=== PATIENT | male | born 1955 | race Caucasian/White ===

== ENCOUNTER 2018-10-12 04:53 | Observation (INO) | payer MEDICAID ==
[~2018-10-12] VITALS: Ht 185.4 cm; Wt 109.1 kg
--- NOTE | ~2018-10-12 | OP ---
PATIENT NAME: MY DOUGLAS MEDICAL RECORD: [id number] :53 LOCATION:D.[facility] [id number] ADMISSION DATE:10/12/18 SURGEON: QUAN RODRIGUEZ MD DATE OF OPERATION: 10/12/2018 PREOPERATIVE DIAGNOSIS: Symptomatic gallstones. POSTOPERATIVE DIAGNOSES: Symptomatic gallstones with extensive intraabdominal adhesions due to a previous bout of peritonitis from a perforated duodenal ulcer, hepatomegaly. PROCEDURES: 1. Laparoscopic cholecystectomy. 2. Intraoperative cholangiography without immediate surgeon interpretation. 3. A 18-gauge core needle liver biopsy. SURGEON: Quan Rodriguez MD ELECTRIC RELAY TESTER: None. BLOOD LOSS: 75 cc. ANESTHESIA: General. COMPLICATIONS: None. DRAINS: Indicator drain, which was a 10-[place]er closed suction drainage system, was placed intraabdominally. The risks, possible complications and alternatives to the procedure were explained to the patient. He elects to proceed. OPERATIVE COURSE: A consent form was signed. The patient was conveyed to the operating room electively on 10/12/2018. General anesthesia was induced by the anesthesia staff. The abdomen was sterilely prepped and draped. A small skin debbie was accomplished in the left upper quadrant. A Veress needle was inserted through the skin debbie into the peritoneal cavity. A skin incision was accomplished here at [place]. A 5-mm trocar was inserted. Extensive intraabdominal adhesions were noted. These were mainly in the epigastrium, centrally located near the umbilicus and the densest ones were in the right upper quadrant. Another 5-mm trocar was inserted in the left side of the abdomen. I began my meticulous sharp dissection. Midline 12-mm trocar was then placed. I continued with the dissection and the adhesiolysis took 95 minutes. Once I had cleared enough room to perform a cholecystectomy, I was able to identify the gallbladder. Three more trocars were inserted, these were 5-mm trocars. One was inserted in the epigastrium, one was inserted in the right upper quadrant, and another one was inserted far laterally in the right upper quadrant. The gallbladder was retracted. I advanced a cholangiogram trocar. I punctured the fundus of the gallbladder. I aspirated bile. I then injected dye. Under real time fluoroscopy, static fluoroscopic images were obtained and these were cholangiographic images, which were sent to the radiologist. Under laparoscopic guidance, I percutaneously accessed the left upper quadrant with an 18-gauge core biopsy device. Cores were obtained over the convexity of the liver. The biopsy sites were made hemostatic with electrocautery. The OPERATIVE REPORT [id number] MY DOUGLAS indication for the liver biopsy was echogenicity noted on the abdominal ultrasound as well as hepatomegaly. The gallbladder was covered with thick adhesions. I began to take these adhesions down. I performed a partially dome down dissection of the gallbladder. I was able to dissect in the triangle of [place]. One cystic artery was identified. This was clipped multiply and divided between clips. Due to heavy encasement of scar tissue, I was really never able to dissect down to the cystic duct. I was able to identify the infundibulum and I advanced an Endo-JAIME and I stapled across the infundibulum, perhaps 1 cm or 2 away from the cystic duct. The gallbladder was then excised from its bed in the liver. It was placed within a bag retrieval device and was withdrawn through the periumbilical fascial defect. The 12-mm trocars were placed and the abdomen reinsufflated. I irrigated and aspirated the right upper quadrant. There was no bleeding even at low pressure of 8. Through one of the trocars, in the left side of the abdomen, I advanced a 10-[place]er drain and placed this under the convexity of the liver. The drain was sutured to skin with a 4-0 nylon. All the trocars were removed and the abdomen desufflated. The periumbilical fascia was closed with a horizontal mattress 0 Vicryl suture. Skin incisions were closed with interrupted intracuticular 3-0 and 4-0 Vicryls. Benzoin and Steri-Strips were applied. Due to the extensive adhesiolysis, this patient is at some risk for an occult small bowel injury. For that reason, I am going to watch the patient in the hospital overnight and observe the indicator drain for any enteral contents or bilious drainage. TRANSINT:[id number] Voice Confirmation ID: [id number] DOCUMENT ID: [id number] QUAN RODRIGUEZ MD CC: ZEN SEPULVEDA THOMAS NATHAN MD, LOVE GREEN JEFFREY MD and [id number] L DICTATION DATE: 10/12/18 1311 PATENT ATTORNEY: 10/12/18 1357 DIS IN 10/13/18 [facility] [address] [facility] [place] [address]
[2018-10-12 07:23] LABS: HEMATOCRIT 39.5 % (42.0-54.0); HEMOGLOBIN 13.7 g/dL (13.5-17.5); MCH 30.4 pg (26.0-34.0); MCHC 34.7 g/dL (31.0-37.0); MCV 87.8 fL (80.0-100.0); MEAN PLATELET VOLUME 10.4 fL (7.4-10.4); RBC 4.5 10x6/uL (4.20-6.10); RDW 12.9 % (11.5-14.5); WBC 4.8 10x3/uL (4.8-10.8)
[2018-10-12 07:58] LABS: CALC OSMOLALITY 283 mosm/kg (275-300); CALCIUM 8.6 mg/dL (8.5-10.1); CHLORIDE - SERUM 105 mmol/L (98-107); CREATININE - SERUM 0.8 mg/dL (0.6-1.3); GLUCOSE 139 mg/dL (74-106); POTASSIUM - SERUM 3.7 mmol/L (3.5-5.1); SODIUM 142 mmol/L (136-145); UREA NITROGEN 10 mg/dL (7-18); eGFR NON AFRICAN AMERICAN > 90 mL/min (90-120)
[2018-10-12 08:24] VITALS: BP 143/88; BMI 33.4
[2018-10-12] MEDS ORDERED: GLIPIZIDE10 MG PO (08:31)
[2018-10-12] MEDS ORDERED: BAYER CHEWABLE81 MG PO (08:31)
[2018-10-12] MEDS ORDERED: OMEPRAZOLE40 MG PO (08:32)
[2018-10-12] MEDS ORDERED: PENTOXIFYLLINE PO (08:33)
[2018-10-12] MEDS ORDERED: COZAAR25 MG PO (08:34)
[2018-10-12] MEDS ORDERED: COREG25 MG PO (08:35)
[2018-10-12] MEDS ORDERED: ZOCOR20 MG PO (08:35)
[2018-10-12] MEDS ORDERED: GLUCOPHAGE1000 MG PO (08:36)
[2018-10-12] MEDS ORDERED: PAXIL30 MG PO (08:36)
--- NOTE | 2018-10-12 12:50 | NUR ---
CONSULTED ANESTHESIA REGARDING DECREASED SPO2 90% ON 6L VIA HIGH FLOW NASAL CANNULA. VERBAL ORDERS RECEIVED PER DR HOLCOMB TO ADMINISTER ALBUTEROL 2.5MG UPDRAFT IN PACU NOW. ORDERS RECEIVED AND IMPLEMENTED. WILL CONTINUE TO MONITOR.
--- NOTE | 2018-10-12 13:30 | NUR ---
REC'D FROM RR. [employer] OFFICERS AT BEDSIDE. DRESSING TO NAVEL AREA DRAINING REQUIRING GOWN AND COVER CHANGE. DRESSING REINFORCED WITH 4X4 AND TAPE. JARED EMPTIED OF 30CC BLOODY DRAINAGE. FL TRAY SERVED. O2 DECREASED TO 4L/MIN NC.
--- NOTE | 2018-10-12 13:53 | NUR ---
NS HUNG TO CURRENT PERIPHERAL IV. PEPCID 40 MG IV ADMINISTERED PER ORDERS,
--- NOTE | 2018-10-12 14:00 | NUR ---
TOLERATING FL DIET. EXTRA ICE CREAM BROUGHT TO PT. OFFICERS AT BEDSIDE. DRESSING DI. AWAITING BED ON MED SURG UNIT.
--- NOTE | 2018-10-12 14:30 | NUR ---
TOLERATED DIET. DRAINAGE NOTED FROM NAVEL INCISION. [employer] OFFICERS AT BEDSIDE.
--- NOTE | 2018-10-12 14:47 | NUR ---
CALLED DR RODRIGUEZ REGARDING DRAINAGE FROM PATIENT'S INCISION. H & H ORDERED PER DR RODRIGUEZ.
--- NOTE | 2018-10-12 15:30 | NUR ---
DR RODRIGUEZ HERE. RELATED TO CHANGE DRESSING AND APPLY A PRESSURE BANDAGE LIKE THE ONE ALREADY APPLIED. CALL H & H RESULTS TO DR RODRIGUEZ. LAB CALLED REGARDING URGENT H & h.
[2018-10-12 15:52] LABS: HEMATOCRIT 41.2 % (42.0-54.0); HEMOGLOBIN 13.9 g/dL (13.5-17.5)
--- NOTE | 2018-10-12 16:20 | NUR ---
RESULT OF H & H CALLED TO DR RODRIGUEZ. ALSO INFORMED DR NEUMANN WILL BE GOING TO ROOM 2205. REPORT CALLED TO Harmeet GIRALDO RN. TRANSFER VIA BED.
[2018-10-12 16:49] VITALS: BP 135/94; Ht 185.4 cm; Wt 109.1 kg
[2018-10-12 17:00] VITALS: BP 135/94
--- NOTE | 2018-10-12 19:10 | NUR ---
ATE ALL OF SUPPER. REPORTS PAIN RELIEVED WITH USE OF KIDNEY TRIMMER. DENIES NEEDS. NO CHANGES NOTED.
[2018-10-12 20:00] VITALS: BP 145/98
[2018-10-13 04:00] VITALS: BP 135/94
[2018-10-13 05:30] LABS: BASOPHILS 0.1 % (0-2); EOSINOPHILS 0.1 % (0-7); HEMATOCRIT 39.6 % (42.0-54.0); HEMOGLOBIN 13.3 g/dL (13.5-17.5); IMMATURE GRANULOCYTES 0.4 % (0-5); LYMPHOCYTES 7.8 % (15-50); MCH 30.4 pg (26.0-34.0); MCHC 33.6 g/dL (31.0-37.0); MEAN PLATELET VOLUME 10.7 fL (7.4-10.4); MONOCYTES 9.5 % (2-11); NEUTROPHILS 82.1 % (40-80); PLATELET COUNT 243 10x3/uL (130-400); RBC 4.37 10x6/uL (4.20-6.10); RDW 13.4 % (11.5-14.5)
--- NOTE | 2018-10-13 05:40 | NUR ---
2000)REC'D. AT CHGE OF SHIFT IN BED SITTING POSITION.EYES CLOSED RESP. DEEP AND EVEN.ABDOMEN OBESE.FIRM. HYPOACTIVE BOWEL SOUNDS ALL QUAD. ALL FIVE LAP SITES DRY AND INTACT WITH JARED DRAIN SEROUS DRAINAGE OBSERVED. GUARD AT BEDSIDE. WILL CONTINUE TO MONITOR FOR ANY CHGES AND FOLLOW CURRENT PLAN OF CARE.
[2018-10-13 05:52] LABS: MCV 90.6 fL (80.0-100.0); WBC 9.5 10x3/uL (4.8-10.8)
[2018-10-13 05:58] LABS: ALKALINE PHOSPHATASE 52 U/L (46-116); ALT (SGPT) 59 U/L (10-68); BILIRUBIN - TOTAL 0.67 mg/dL (0.2-1.3); CALC OSMOLALITY 281 mosm/kg (275-300); CALCIUM 7.3 mg/dL (8.5-10.1); CARBON DIOXIDE 25.9 mmol/L (21.0-32.0); CHLORIDE - SERUM 105 mmol/L (98-107); CREATININE - SERUM 0.9 mg/dL (0.6-1.3); GLUCOSE 170 mg/dL (74-106); MAGNESIUM - SERUM 1.7 mg/dL (1.8-2.4); PHOSPHOROUS 2.6 mg/dL (2.5-4.9); POTASSIUM - SERUM 3.4 mmol/L (3.5-5.1); PROTEIN - SERUM 6.6 g/dL (6.4-8.2); SODIUM 140 mmol/L (136-145); UREA NITROGEN 11 mg/dL (7-18); eGFR NON AFRICAN AMERICAN 90 mL/min (90-120)
--- NOTE | 2018-10-13 06:23 | NUR ---
I have reviewed this patient and I concur with the Shift Assessment completed by the Licensed Practical Nurse today this shift.
[2018-10-13 09:20] VITALS: BP 122/89
[2018-10-13 11:00] VITALS: BP 148/99
[2018-10-13] MEDS ORDERED: HYDROCODON-ACE1 EA10 PO (13:27)
--- NOTE | 2018-10-13 14:46 | NUR ---
REMOVED JARED DRAIN PER ORDERS. TIP INTACT AND 10 ML OF OUTPUT IN BULB. PATIENT WITH NO COMPLAINTS OF PAIN AT THIS TIME. CALL LIGHT IN REACH AND BED IN LOW POSITTION.
--- NOTE | 2018-10-13 15:06 | MORECARE ---
CASE MANAGEMENT DISCHARGE SUMMARY PATIENT: MY DOUGLAS UNIT: [id number] ADM DATE: 10/12/18 AGE: 63 : 53 SEX: M ROOM/BED: D.2205 AUTHOR: GUZMAN JAY PHYSICIAN: REFERRING PHYSICIAN: QUAN RODRIGUEZ MD DATE OF SERVICE: 10/13/18 Discharge Plan Patient Name: MY DOUGLAS [facility] : 1955 Planned Disposition: Home Anticipated Discharge Date: Discharge Date: Expected LOS: Initial Reviewer: [email or web address] Initial Review Date: 10/12/2018 Generated: 10/13/18 4:06 pm Comments DCP- Discharge Planning Updated by [email or web address]: Renetta Dang on 10/13/18 1:[address] Patient will be discharging back to [facility], the guards will be the one to set up transportation Patient Name: MY DOUGLAS Page [id number] at 1506 All edits/amendments must be made on the electronic document DICTATION DATE: 10/13/18 1506 CNA LTC: MAT 10/13/18 1506 RPT#: [id number] DC DATE: STATUS: ADM IN [facility] [address] [place] [address] END OF REPORT
[2018-10-13 16:00] VITALS: BP 128/57
== END 2018-10-13 17:44 ==
LOC: D.OPS 04:53 → D.SDCHOLD 15:21 → OBSVTIME 15:21 → D.MS 16:26
PROVIDERS: Anesthesiology; ADMIT Surgery; ATTEND Surgery
DX: K80.80 Other cholelithiasis without obstruction (principal); R16.0 Hepatomegaly, not elsewhere classified; K66.0 Peritoneal adhesions (postprocedural) (postinfection)

== ENCOUNTER 2019-10-04 06:18 | Day surgery (SDC) | payer OTHER ==
[~2019-10-04] VITALS: Ht 185.4 cm; Wt 106.6 kg
[~2019-10-04 06:18] MED LIST: BAYER CHEWABLE81 MG PO; COREG25 MG PO; COZAAR25 MG PO; GLIPIZIDE10 MG PO; GLUCOPHAGE1000 MG PO; HYDROCODON-ACE1 EA10 PO; OMEPRAZOLE40 MG PO; PAXIL30 MG PO; PENTOXIFYLLINE PO; ZOCOR20 MG PO
[2019-10-04 07:00] LABS: BASOPHILS 0.5 % (0-2); HEMATOCRIT 40.5 % (42.0-54.0); HEMOGLOBIN 13.5 g/dL (13.5-17.5); IMMATURE GRANULOCYTES 0.2 % (0-5); LYMPHOCYTES 19.4 % (15-50); MCH 29.2 pg (26.0-34.0); MCHC 33.3 g/dL (31.0-37.0); MCV 87.5 fL (80.0-100.0); MEAN PLATELET VOLUME 10.1 fL (7.4-10.4); MONOCYTES 8.2 % (2-11); NEUTROPHILS 68.7 % (40-80); PLATELET COUNT 239 10x3/uL (130-400); RBC 4.63 10x6/uL (4.20-6.10); RDW 13.4 % (11.5-14.5); WBC 5.6 10x3/uL (4.8-10.8)
[2019-10-04 07:18] LABS: ANION GAP 10.6 mmol/L (8-16); CALCIUM 8.7 mg/dL (8.5-10.1); CARBON DIOXIDE 32.2 mmol/L (21.0-32.0); CREATININE - SERUM 1.3 mg/dL (0.6-1.3)
[2019-10-04 07:23] LABS: POTASSIUM - SERUM 2.8 mmol/L (3.5-5.1)
[2019-10-04 07:26] VITALS: BP 129/79; Ht 185.4 cm; Wt 106.6 kg
--- NOTE | 2019-10-04 07:37 | NUR ---
PER ANESTHESIA PT IS CLEARED FOR SURGERY. NO FURTHER ORDERS FOR HYPOTENSION.
--- NOTE | 2019-10-04 10:26 | NUR ---
1017 RECEIVED PATIENT WITH POTASSIUM CHLORIDE 10 MEQ PER 100 ML RUNNING VIA PUMP AT 100 CC PER HOUR IVPB INTO RIGHT HAND IV
--- NOTE | 2019-10-04 13:39 | NUR ---
1150-REMOVED IV WITH CATH INTACT, DISPOSED INTO SHARPS,COVERED WITH GUAZE, SECURED WITH MEDIPORE TAPE. VSS. BANDAIDS X 2 TO FACE CDI.
--- NOTE | 2019-10-04 13:40 | NUR ---
1205-REVIEWED POST OPERATIVE INSTRUCTIONS. COPY OF POST OP NOTE,LABS,AND CHEST X RAY SENT IN ENVELOPE WITH IM. ESCORTED OUT VIA W/C BY CORRECTIONAL OFFICERS.
--- NOTE | 2019-10-04 13:42 | NUR ---
1120-LATE ENTRY-POTASSIUM RIDER INFUSION COMPLETE WITHOUT S/S OF ADVERSE REACTION.
--- NOTE | 2019-10-06 10:43 | OP ---
PATIENT NAME: MY DOUGLAS MEDICAL RECORD: [id number] :53 LOCATION:D.OPS ADMISSION DATE: SURGEON: NEERAJ RODRIGUEZ MD DATE OF OPERATION: 10/04/2019 PREOPERATIVE DIAGNOSIS: Suspicious facial skin lesions times 3. POSTOPERATIVE DIAGNOSIS: Suspicious facial skin lesions times 3. Pathology pending. PROCEDURES: Shave biopsies with electrodesiccation and curettage of facial lesions times 3. SURGEON: Neeraj Rodriguez MD SEED CLEANING MANAGER: None. BLOOD LOSS: Minimal. ANESTHESIA: General. COMPLICATIONS: None. The risks, possible complications and alternatives to the procedure were explained to the patient. He elects to proceed. The discussion specifically included, but was not limited to, bleeding requiring emergency reoperation, infection as well as possible need for excision of the skin lesions in the future. I saw the patient in the outpatient department. The patient has a third skin lesion. I believe that this third lesion is suspicious. We had initially elected just to remove two skin lesions, but I think this third lesion needs to be removed as well. We changed the consent. OPERATIVE COURSE: The patient was conveyed the operating room electively on 10/04/2019. General anesthesia was induced by the anesthesia staff. The patient was sterilely prepped and draped. There was a right temporal skin lesion as well as a left cheek skin lesion and a left nasolabial fold lesion. The cheek lesion was 3-mm in diameter. The nasolabial fold skin lesion was somewhat ulcerated centrally and was a 6-mm skin lesion. The right temporal skin lesion was a 2.0 cm flat skin lesion. All were shaved biopsied. I then performed 3 rounds of electrodesiccation and curettage at each site. Ointment and Band-Aids were applied. The patient was then extubated and conveyed to post-anesthesia care unit where he was in stable condition. TRANSINT:[id number] Voice Confirmation ID: [id number] DOCUMENT ID: [id number] OPERATIVE REPORT [id number] MY DOUGLAS ROBERT MD at 1043 CC: [id number] DICTATION DATE: 10/04/19 1014 TRACK SERVICE PERSON: 10/04/19 1345 [facility] 10/04/19 [place] [address]
== END 2019-10-04 12:05 | disposition home or self-care (01) ==
LOC: D.OPS 06:18
PROVIDERS: ATTEND Surgery
DX: L98.9 Disorder of the skin and subcutaneous tissue, unspecified (principal); I10 Essential (primary) hypertension; E11.40 Type 2 diabetes mellitus with diabetic neuropathy, unspecified; K21.9 Gastro-esophageal reflux disease without esophagitis; M50.30 Other cervical disc degeneration, unspecified cervical region; M51.36 Other intervertebral disc degeneration, lumbar region